=== PATIENT | female | born 1980 ===

== ENCOUNTER 2020-04-07 21:34 | Emergency (ER) | payer OTHER ==
[~2020-04-07] VITALS: Ht 170.2 cm; Wt 136.1 kg
[2020-04-07] MEDS ORDERED: DULOXETINE HCL60 MG PO (21:58)
[2020-04-07] MEDS ORDERED: CLONAZEPAM1 MG PO (21:58)
[2020-04-07] MEDS ORDERED: TENORMIN25 MG PO (21:59)
[2020-04-07] MEDS ORDERED: TRAZODONE HCL50 MG PO (21:59)
[2020-04-07] MEDS ORDERED: ALLERGY RELIEF10 M4 PO (22:00)
[2020-04-08] MEDS ORDERED: PYRIDIUM DS200 MG PO (02:50)
[2020-04-08] MEDS ORDERED: CIPRO500 MG PO (02:50)
== END 2020-04-08 04:57 | disposition home or self-care (01) ==
LOC: ER 21:34
DX: N39.0 Urinary tract infection, site not specified (principal)